=== PATIENT | female | born 1945 | race Two or more races ===

== ENCOUNTER 2020-11-15 05:57 | Day surgery (SDC) | payer OTHER ==
[~2020-11-15 05:57] MED LIST: ALLEGR PO; BREO IH; COZAAR50 MG PO; SINGUL PO; SPIRIVA; SYNTH PO; ZETIA PO
== END 2020-11-15 14:50 | disposition home or self-care (01) ==
LOC: CIR.AMB 05:57
PROVIDERS: ATTEND Orthopaedic Surgery Hand Surgery
DX: S52.532A Colles' fracture of left radius, initial encounter for closed fracture (principal); Z20.828 Contact with and (suspected) exposure to other viral communicable diseases
CPT/HCPCS: 25609; 25118; 25280; C1776